=== PATIENT | female | born 1975 | race Caucasian/White ===

== ENCOUNTER 2018-06-30 13:06 | Emergency (ER) | payer OTHER ==
[2018-06-30] MEDS ORDERED: NAPROXEN 250 MG TABLET PO ONE (13:49)
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
[2018-06-30 15:17] VITALS: BP 119/72
== END 2018-06-30 15:15 | disposition home or self-care (01) ==
LOC: ER 13:06
DX: M54.2 Cervicalgia (principal); V49.40XA Driver injured in collision with unspecified motor vehicles in traffic accident, initial encounter
CPT/HCPCS: 99284; 72125; L0120